=== PATIENT | female | born 1970 | race Two or more races ===

== ENCOUNTER 2021-03-20 10:07 | Outpatient (CLI) | payer OTHER | END 2021-03-20 10:09 | disposition home or self-care (01) | LOC: NUCLEAR 10:07 | PROVIDERS: ATTEND Specialist | DX: I87.2 Venous insufficiency (chronic) (peripheral) (principal); I73.9 Peripheral vascular disease, unspecified; M65.879 Other synovitis and tenosynovitis, unspecified ankle and foot; L03.119 Cellulitis of unspecified part of limb ==